=== PATIENT | female | born 1935 | race Two or more races ===

== ENCOUNTER 2019-01-21 12:57 | Emergency (ER) | payer OTHER ==
[~2019-01-21] VITALS: Ht 154.9 cm; Wt 54.0 kg
[~2019-01-21 12:57] MED LIST: ASPIRIN81 MG; ATORVASTATIN CA10 MG; CALTRATE 600 W-1 TAB; LIPITOR20 MG; LISINOPRIL10 MG; METOPROLOL SUCC25 MG; SYNTHROID50 MCG; TESSALON PERLE100 MG PO; TOPROL XL25 MG; TUSSI-PRES LIQ120 ML PO; VYTORIN 10-20 M1 TAB; ZANTAC150 MG PO
== END 2019-01-21 20:41 | disposition home or self-care (01) ==
LOC: ER 12:57
DX: M54.5 Low back pain (principal)

== ENCOUNTER 2021-07-14 10:50 | Emergency (ER) | payer OTHER ==
[~2021-07-14] VITALS: Ht 152.4 cm; Wt 54.9 kg
== END 2021-07-14 12:51 | disposition home or self-care (01) ==
LOC: ER 10:50
DX: S00.83XA Contusion of other part of head, initial encounter (principal); W19.XXXA Unspecified fall, initial encounter; Y93.89 Activity, other specified; Y92.098 Other place in other non-institutional residence as the place of occurrence of the external cause; Y99.8 Other external cause status

== ENCOUNTER 2022-10-03 14:23 | Emergency (ER) | payer OTHER ==
[~2022-10-03] VITALS: Ht 157.5 cm; Wt 51.3 kg
[2022-10-03] MEDS ORDERED: DICLOFENAC POTA50 MG PO (17:21)
== END 2022-10-03 17:48 | disposition home or self-care (01) ==
LOC: ER 14:23
DX: M25.562 Pain in left knee (principal); Z88.0 Allergy status to penicillin; Z88.8 Allergy status to other drugs, medicaments and biological substances